=== PATIENT | female | born 1985 | race Caucasian/White ===

== ENCOUNTER → 2024-01-29 15:01 | Outpatient (REF) | payer OTHER, SELFPAY | LOC: WDC 15:01 | PROVIDERS: ATTENDING PHYSICIAN Obstetrics & Gynecology Gynecology; FAMILY PHYSICIAN Emergency Medicine | DX: Z12.31 Encounter for screening mammogram for malignant neoplasm of breast (principal) | CPT/HCPCS: 77063; 77067 ==

== ENCOUNTER 2024-02-22 18:43 | Emergency (ER) | payer OTHER, SELFPAY ==
[2024-02-22 18:54] VITALS: BP 167/108
--- NOTE | 2024-02-22 19:03 | ED.GENMED ---
History of Present Illness
General
Chief Complaint: Urinary Symptoms
Source: patient
Exam Limitations: none
Time Seen by Provider: 02/22/24 18:59
Nursing documentation reviewed up to this point in time: agreed with
Travel History
Have you had any contact with someone who has COVID-19?: No
Do you have any symptoms of coronavirus? Fever > 100 degrees, chills, cough, shortness of breath, sore throat, loss of taste or smell, muscle aches, or headache?: No
History of Present Illness
History of Present Illness:
38-year-old female with no past medical history states she has not voided since 10 PM last night. She feels bloated and has attempted multiple times to urinate but nothing coming out. She denies fever or chills. Denies N/V/C/D.
Past History
Past History
ED Past Medical History: None
ED Past Surgical History: None
Social History
Tobacco: Non-smoker
Alcohol: None
Personal: Single
Employment: Employed
Review of Systems
Review of Systems
Allergies reviewed?: Yes
All Other Systems: ROS reviewed and negative except as documented in HPI and ROS
Constitutional: Denies fever or chills
Respiratory: Denies trouble breathing
Cardiac: Denies chest pain
ABD/GI: Reports abdominal pain; Denies nausea, vomiting, diarrhea, constipated or anorexia
: Reports difficulty voiding; Denies dysuria, flank pain, incontinence or bleeding
Musculoskeletal: Reports no symptoms
Skin: Reports no symptoms
Neurological: Reports no symptoms
Phy Exam
Physical Exam
Physical Exam:
GENERAL: No acute distress. A&Ox3.
CONSTITUTIONAL: Afebrile.
RESPIRATORY: Regular respirations, nonlabored, lungs clear.
CARDIOVASCULAR: Regular rate and rhythm, no murmurs, no rubs.
GI: Soft, mildly distended, suprapubic tenderness. normal BS
MUSCULOSKELETAL: Moves with ease. Well perfused.
SKIN: Warm, dry, pink
PSYCH: Normal mood and affect. Well kept, interactive and appropriate
NEUROLOGIC: Awake, alert and oriented. No focal neurological deficits
Course
Orders/Labs/Results
Orders:
Orders
02/22/24 19:02
Bladder Scan- Treatment ONCE
02/22/24 19:21
Urinalysis Reflex To Culture Urgent
Date Specimen was Collected: 02/22/24
Time Specimen was Collected: 19:19
Urine Culture Urgent
RUBÉN Source: U
Specimen Description:
Date Specimen was Collected: 02/22/24
Time Specimen was Collected: 19:19
02/22/24 19:26
Hagan [Hagan Placement- Treatment] ONCE
Reason for insertion: Acute Retention
02/22/24 19:38
Test Result ONCE
02/22/24 19:39
Complete Blood Count/With Diff Urgent
Comprehensive Metabolic Panel Urgent
HCG, Serum Qualitative Screen Urgent
02/22/24 20:24
Add On - Microbiology Urgent
Tests Added?: urine culture requested by Urology
Abnormal Lab Results
02/22/24
19:39
Hct 36.6 L %
(37.0-47.0)
Absolute Neuts (auto) 7.8 H 10^3/uL
(1.4-6.5)
Neutrophils % 78.4 H %
(42.2-75.2)
Lymphocytes % 15.2 L %
(20.5-51.1)
Glucose 107 H mg/dl
(70-99)
02/22/24 19:39
02/22/24 19:39
Vital Signs
Initial and Last Documented VS:
Initial Vital Signs
Temp Pulse Resp BP Pulse Ox
98.4 F 110 16 167/108 100
02/22/24 18:54 02/22/24 18:54 02/22/24 18:54 02/22/24 18:54 02/22/24 18:54
Last Documented Vital Signs
Temp Pulse Resp BP Pulse Ox
98.4 F 84 18 143/87 97
02/22/24 18:54 02/22/24 19:59 02/22/24 19:59 02/22/24 19:59 02/22/24 19:59
MDM/Problems Addressed
Differential Diagnosis Includes:
UTI,
MDM/Problems Addressed:
38-year-old female with no past medical history states she has not voided since 10 PM last night. She feels bloated and has attempted multiple times to urinate but nothing coming out. She denies fever or chills. Denies N/V/C/D.
She took 1 dose of Cystex bacteria control (methenamine and sodium)
Afebrile
8:04 PM
RN inserted Hagan catheter and reports 1800 mL of urine returned, clear ramonita, patient expressing much relief
CBC normal
UA negative
hCG negative
CMP: WNL
Consulted urologist Dr. Barnard who recommends catheter for a week, call office for appointment
No imaging indicated at this time
Added on Lab for urine culture
*Critical Care Note
Total Time (30-74mins, 75-104mins- exclusive of procedures): Not Applicable
ED Attending Note
-
Portions of this chart may have been created with voice recognition software.� Occasional wrong word or��sound alike� substitutions may have occurred due to the inherent limitations of voice recognition software.
Discharge Plan
Departure
Patient Disposition: Home (Routine Discharge)
Date of Disposition: 02/22/24
Time of Disposition: 20:25
Patient with high blood pressure during this ER visit?: No
Condition: Good
Discharge Problem:
Acute retention of urine
Instructions: How to Care for Your Hagan Catheter, Urinary Retention
Referrals:
Mary Nicole MD [Family Provider] -
Bryan Barnard MD [Active] - Call in 1-3 days for appt
Activity Restrictions/Additional Instructions:
As we discussed, call the urology office tomorrow morning and tell them we spoke with Dr. Barnard, he want you to make an appointment for 8-9 days.
Interventions
Interventions:
*Risk Screen - Suicide Last Done: 02/22/24 19:29
*General Assessment Last Done: 02/22/24 19:29
*Neglect/Abuse Screening Last Done: 02/22/24 19:29
ED- Fall Risk Assessment Last Done: 02/22/24 19:29
*ED COVID-19 Vaccine History Last Done: 02/22/24 19:29
ED-Female Genitourinary Assessment Last Done: 02/22/24 19:26
Discharge Date and Time
Print Language: [id number]
[2024-02-22 19:29] LABS: Urine Albumin Negative (Neg - Trace); Urine Bilirubin Negative (Negative); Urine Character Clear (Clear); Urine Color Yellow; Urine Glucose Negative (Negative); Urine Ketone Negative (Negative); Urine Leukocyte Negative (Negative); Urine Nitrite Negative (Negative); Urine Occult Blood Negative (Negative); Urine Specific Gravity 1.015 (<1.030); Urine Urobilinogen Negative (Neg - 1+)
[2024-02-22 19:50] LABS: % Basophils 0.4 % (0-2); % Eosinophils 0.5 % (0-6); % Immature Granulocytes 0.3 % (0-0.5); % Lymphocytes 15.2 % (20.5-51.1); % Monocytes 5.2 % (1.7-9.3); % Neutrophils 78.4 % (42.2-75.2); Absolute Eosinophils 0.1 10^3/uL (0-0.7); Absolute Lymphocytes 1.5 10^3/uL (1.2-3.4); Absolute Monocytes 0.5 10^3/uL (0.1-0.6); Absolute Neutrophils 7.8 10^3/uL (1.4-6.5); Hematocrit 36.6 % (37.0-47.0); Hemoglobin 12.7 g/dL (12.0-16.0); Mean Corp Hgb Conc. 34.7 g/dL (33.0-37.0); Mean Corpuscular Hgb 29.2 pg (27.0-31.0); Mean Corpuscular Volume 84.1 fL (81.0-99.0); Mean Platelet Volume 9.5 fL (7.4-10.4); Nucleated Red Blood Cells % 0 %; Platelet Count 271 10^3/uL (130-400); Red Blood Cell Count 4.35 10^6/uL (4.20-5.40); Red Cell Dist. Width 13.2 % (11.5-14.5); White Blood Cell Count 9.9 10^3/uL (4.8-10.8)
[2024-02-22 19:59] VITALS: BP 143/87
[2024-02-22 20:02] LABS: HCG, Serum Qualitative Screen Negative
[2024-02-22 20:04] LABS: ALT (SGPT) 35 U/L (0-35); AST (SGOT) 35 U/L (14-36); Albumin 4.2 g/dl (3.5-5.0); Alkaline Phosphatase 81 U/L (38-126); Blood Urea Nitrogen 13 mg/dl (7-17); Calcium 9.2 mg/dl (8.4-10.2); Carbon Dioxide 22 mmol/L (22-30); Chloride 107 mmol/L (98-107); Glucose 107 mg/dl (70-99); Sodium 135 mmol/L (135-145); Total Bilirubin 0.2 mg/dl (0.2-1.3); Total Protein 6.9 g/dl (6.3-8.2); eGFR > 60.00
== END 2024-02-22 21:26 | disposition home or self-care (01) ==
LOC: EMR 18:43
PROVIDERS: Registered Nurse; EMERGENCY PHYSICIAN Emergency Medicine; FAMILY PHYSICIAN Emergency Medicine
DX: R33.9 Retention of urine, unspecified (principal); R14.0 Abdominal distension (gaseous); R10.9 Unspecified abdominal pain
CPT/HCPCS: 99283; 51702; 51798; 80053; 81003; 84703; 85025; 87086

== ENCOUNTER → 2024-03-31 08:50 | Outpatient (REF) | payer OTHER, SELFPAY | LOC: HWRAD 08:50 | PROVIDERS: ATTENDING PHYSICIAN Obstetrics & Gynecology; FAMILY PHYSICIAN Emergency Medicine | DX: R33.9 Retention of urine, unspecified (principal) | CPT/HCPCS: 76770; 76830; 76856 ==